=== PATIENT | male | born 1975 | race Native Hawaiian/Other Pacific Islander ===

== ENCOUNTER 2018-10-12 14:24 | Emergency (ER) | payer SELFPAY ==
--- NOTE | 2018-10-12 14:42 | Emergency Department Report ---
Chief Complaint: Hyperglycemia Stated Complaint: HIGH SUGAR Time Seen by Provider: 10/12/18 14:39 - HPI History of Present Illness: went to PCP and blood glucose read TOO HIGH has a hx of DM, hasnt taken medications in 3 months, was on metformin/glimperide feels fatigue, gen weakness, increased urination, feels thirsty no CP or SOB denies any other medical problems non smoker 3-4 beers per week no drug use BG 500 in triage MSE screening note: Focused history and physical exam performed. Due to findings the following was ordered: labs, UA ED Disposition for MSE Condition: Stable
[2018-10-12] MEDS ORDERED: NACL 0.9% 1000 ML 1,000 ML IV ONE (14:50)
[2018-10-12 15:03] LABS: Basophils % (Auto) 0.1 % (0.0-1.8); Eosinophils # (Auto) 0.1 K/mm3 (0.0-0.4); Eosinophils % (Auto) 0.9 % (0.0-4.3); Lymphocytes # (Auto) 2.6 K/mm3 (1.2-5.4); Lymphocytes % (Auto) 29.5 % (13.4-35.0); Mean Corpuscular HGB Conc 36 % (32-34); Mean Corpuscular Volume 90 fl (84-94); Monocytes # (Auto) 0.5 K/mm3 (0.0-0.8); Monocytes % (Auto) 5.6 % (0.0-7.3); Platelet Count 282 K/mm3 (140-440); Red Blood Count 4.99 M/mm3 (3.65-5.03); Red Cell Distribution Width 12.3 % (13.2-15.2)
[2018-10-12 15:15] LABS: Bilirubin,Urine NEG (Negative); Blood,Urine NEG (Negative); Color,Urine Colorless (Yellow); Protein,Urine <15 mg/dL mg/dL (Negative); Urobilinogen,Urine < 2.0 mg/dL (<2.0); WBC,Urine < 1.0 /HPF (0.0-6.0)
[2018-10-12 15:43] LABS: Alanine Aminotransferase 24 units/L (7-56); Albumin 4.2 g/dL (3.9-5); BUN/Creatinine Ratio 18; Blood Urea Nitrogen 11 mg/dL (9-20); Calcium 8.9 mg/dL (8.4-10.2); Hemolysis Index 50
[2018-10-12] MEDS ORDERED: NACL 0.9% 1000 ML 2,000 ML ONE (15:52)
[2018-10-12] MEDS ORDERED: HumuLIN R IV ONE (15:56)
--- NOTE | 2018-10-12 16:00 | Emergency Department Report ---
ED General Adult HPI - General Chief complaint: Hyperglycemia Stated complaint: HIGH SUGAR Time Seen by Provider: 10/12/18 14:39 Source: patient Mode of arrival: Ambulatory Limitations: No Limitations - History of Present Illness Initial comments: The patient presents to the emergency department per request of his primary care physician for elevated glucose levels. The patient complains of having increased thirst and increased urination over the last 2-3 months. Patient has not had his diabetic medications for that timeframe as well. Patient is oral diabetic medications and insulin. At his doctor's appointment today his glucose levels greater than 500. Patient sent to ED for further eval. -: Gradual Severity scale (0 -10): 0 Improves with: none Worsens with: none Associated Symptoms: denies other symptoms Treatments Prior to Arrival: none - Related Data Home Medications Medication Instructions Recorded Confirmed Last Taken Glimepiride [Amaryl] 4 mg PO QDAY 10/12/18 10/12/18 Unknown Lisinopril [Zestril TAB] 5 mg PO QDAY 10/12/18 10/12/18 Unknown Metformin HCl [Glucophage] 1,000 mg PO BID 10/12/18 10/12/18 Unknown Simvastatin [Zocor] 40 mg PO HS 10/12/18 10/12/18 Unknown Previous Rx's Medication Instructions Recorded Last Taken Type Glimepiride [Amaryl] 4 mg PO QAM #30 tablet 10/12/18 Unknown Rx metFORMIN [Glucophage] 500 mg PO BID #120 tablet 10/12/18 Unknown Rx Allergies Allergy/AdvReac Type Severity Reaction Status Date / Time No Known Allergies Allergy Verified 10/12/18 14:26 ED Review of Systems ROS: Stated complaint: HIGH SUGAR Other details as noted in HPI Comment: All other systems reviewed and negative Constitutional: denies: chills, fever Eyes: denies: eye pain, eye discharge, vision change ENT: denies: ear pain, throat pain Respiratory: denies: cough, shortness of breath, wheezing Cardiovascular: denies: chest pain, palpitations Endocrine: no symptoms reported Gastrointestinal: denies: abdominal pain, nausea, diarrhea Genitourinary: denies: urgency, dysuria Musculoskeletal: denies: back pain, joint swelling, arthralgia Skin: denies: rash, lesions Neurological: denies: headache, weakness, paresthesias Psychiatric: denies: anxiety, depression Hematological/Lymphatic: denies: easy bleeding, easy bruising ED Past Medical Hx - Past Medical History Hx Diabetes: Yes - Surgical History Past Surgical History?: No - Social History Smoking Status: Never Smoker Substance Use Type: Alcohol - Medications Home Medications: Home Medications Medication Instructions Recorded Confirmed Last Taken Type Glimepiride [Amaryl] 4 mg PO QAM #30 tablet 10/12/18 Unknown Rx Glimepiride [Amaryl] 4 mg PO QDAY 10/12/18 10/12/18 Unknown History Lisinopril [Zestril TAB] 5 mg PO QDAY 10/12/18 10/12/18 Unknown History Metformin HCl [Glucophage] 1,000 mg PO BID 10/12/18 10/12/18 Unknown History Simvastatin [Zocor] 40 mg PO HS 10/12/18 10/12/18 Unknown History metFORMIN [Glucophage] 500 mg PO BID #120 tablet 10/12/18 Unknown Rx ED Physical Exam - General Limitations: No Limitations General appearance: alert, in no apparent distress - Head Head exam: Present: atraumatic, normocephalic - Eye Eye exam: Present: normal appearance, PERRL - ENT ENT exam: Present: mucous membranes moist - Neck Neck exam: Present: normal inspection - Respiratory Respiratory exam: Present: normal lung sounds bilaterally. Absent: respiratory distress - Cardiovascular Cardiovascular Exam: Present: regular rate, normal rhythm. Absent: systolic murmur, diastolic murmur, rubs, gallop - GI/Abdominal GI/Abdominal exam: Present: soft, normal bowel sounds. Absent: distended, tenderness - Rectal Rectal exam: Present: deferred - Extremities Exam Extremities exam: Present: normal inspection - Back Exam Back exam: Present: normal inspection - Neurological Exam Neurological exam: Present: alert, oriented X3, CN II-XII intact. Absent: motor sensory deficit - Psychiatric Psychiatric exam: Present: normal affect, normal mood - Skin Skin exam: Present: warm, dry, intact, normal color. Absent: rash ED Course Vital Signs 10/12/18 14:39 Temperature 98.0 F Pulse Rate 92 H Respiratory 19 Rate Blood Pressure 121/87 Blood Pressure 121/87 [Left] O2 Sat by Pulse 98 Oximetry ED Medical Decision Making - Lab Data Result diagrams: 10/12/18 14:54 10/12/18 14:54 Lab Results 10/12/18 10/12/18 10/12/18 Range/Units 14:34 14:54 14:54 WBC 8.9 (4.5-11.0) K/mm3 RBC 4.99 (3.65-5.03) M/mm3 Hgb 16.0 H (11.8-15.2) gm/dl Hct 45.0 (35.5-45.6) % MCV 90 (84-94) fl MCH 32 (28-32) pg MCHC 36 H (32-34) % RDW 12.3 L (13.2-15.2) % Plt Count 282 (140-440) K/mm3 Lymph % (Auto) 29.5 (13.4-35.0) % Preston % (Auto) 5.6 (0.0-7.3) % Eos % (Auto) 0.9 (0.0-4.3) % Baso % (Auto) 0.1 (0.0-1.8) % Lymph # 2.6 (1.2-5.4) K/mm3 Preston # 0.5 (0.0-0.8) K/mm3 Eos # 0.1 (0.0-0.4) K/mm3 Baso # 0.0 (0.0-0.1) K/mm3 Seg Neutrophils % 63.9 (40.0-70.0) % Seg Neutrophils # 5.7 (1.8-7.7) K/mm3 Sodium 127 L (137-145) mmol/L Potassium 4.5 (3.6-5.0) mmol/L Chloride 90.7 L (98-107) mmol/L Carbon Dioxide 23 (22-30) mmol/L Anion Gap 18 mmol/L BUN 11 (9-20) mg/dL Creatinine 0.6 L (0.8-1.5) mg/dL Estimated GFR > 60 ml/min BUN/Creatinine Ratio 18 % Glucose 619 H* (75-100) mg/dL POC Glucose 500 H (70-105) Calcium 8.9 (8.4-10.2) mg/dL Total Bilirubin 0.50 (0.1-1.2) mg/dL AST 18 (5-40) units/L ALT 24 (7-56) units/L Alkaline Phosphatase 88 (35-129) units/L Total Protein 7.2 (6.3-8.2) g/dL Albumin 4.2 (3.9-5) g/dL Albumin/Globulin Ratio 1.4 % Urine Color (Yellow) Urine Turbidity (Clear) Urine pH (5.0-7.0) Ur Specific Hitchcock (1.003-1.030) Urine Protein (Negative) mg/dL Urine Glucose (UA) (Negative) mg/dL Urine Ketones (Negative) mg/dL Urine Blood (Negative) Urine Nitrite (Negative) Urine Bilirubin (Negative) Urine Urobilinogen (<2.0) mg/dL Ur Leukocyte Esterase (Negative) Urine WBC (Auto) (0.0-6.0) /HPF Urine RBC (Auto) (0.0-6.0) /HPF 10/12/18 10/12/18 Range/Units 14:55 17:05 WBC (4.5-11.0) K/mm3 RBC (3.65-5.03) M/mm3 Hgb (11.8-15.2) gm/dl Hct (35.5-45.6) % MCV (84-94) fl MCH (28-32) pg MCHC (32-34) % RDW (13.2-15.2) % Plt Count (140-440) K/mm3 Lymph % (Auto) (13.4-35.0) % Preston % (Auto) (0.0-7.3) % Eos % (Auto) (0.0-4.3) % Baso % (Auto) (0.0-1.8) % Lymph # (1.2-5.4) K/mm3 Preston # (0.0-0.8) K/mm3 Eos # (0.0-0.4) K/mm3 Baso # (0.0-0.1) K/mm3 Seg Neutrophils % (40.0-70.0) % Seg Neutrophils # (1.8-7.7) K/mm3 Sodium (137-145) mmol/L Potassium (3.6-5.0) mmol/L Chloride (98-107) mmol/L Carbon Dioxide (22-30) mmol/L Anion Gap mmol/L BUN (9-20) mg/dL Creatinine (0.8-1.5) mg/dL Estimated GFR ml/min BUN/Creatinine Ratio % Glucose (75-100) mg/dL POC Glucose 295 H (70-105) Calcium (8.4-10.2) mg/dL Total Bilirubin (0.1-1.2) mg/dL AST (5-40) units/L ALT (7-56) units/L Alkaline Phosphatase (35-129) units/L Total Protein (6.3-8.2) g/dL Albumin (3.9-5) g/dL Albumin/Globulin Ratio % Urine Color Colorless (Yellow) Urine Turbidity Clear (Clear) Urine pH 6.0 (5.0-7.0) Ur Specific Hitchcock 1.030 (1.003-1.030) Urine Protein <15 mg/dl (Negative) mg/dL Urine Glucose (UA) >=500 (Negative) mg/dL Urine Ketones Neg (Negative) mg/dL Urine Blood Neg (Negative) Urine Nitrite Neg (Negative) Urine Bilirubin Neg (Negative) Urine Urobilinogen < 2.0 (<2.0) mg/dL Ur Leukocyte Esterase Neg (Negative) Urine WBC (Auto) < 1.0 (0.0-6.0) /HPF Urine RBC (Auto) 1.0 (0.0-6.0) /HPF - Medical Decision Making Patient glucose levels improved with IV insulin and IV fluids Critical Care Time: Yes Critical care time in (mins) excluding proc time.: 35 Critical care attestation.: If time is entered above; I have spent that time in minutes in the direct care of this critically ill patient, excluding procedure time. ED Disposition Clinical Impression: Hyperglycemia Disposition: DC-01 TO HOME OR SELFCARE Is pt being admited?: No Does the pt Need Aspirin: No Condition: Stable Instructions: Diabetic Hyperglycemia (ED) Additional Instructions: return if worse Prescriptions: Glimepiride [Amaryl] 4 mg PO QAM #30 tablet metFORMIN [Glucophage] 500 mg PO BID #120 tablet Referrals: LUDWIG ROCK MD [Primary Care Provider] - 3-5 Days [facility] [Provider Group] - 3-5 Days [facility] [Provider Group] - 3-5 Days [facility] [Outside] - 3-5 Days [facility] [Provider Group] - 3-5 Days Time of Disposition: 17:42
[2018-10-12 18:10] VITALS: BP 116/85
== END 2018-10-12 18:11 | disposition home or self-care (01) ==
LOC: ED 14:24
DX: E11.65 Type 2 diabetes mellitus with hyperglycemia (principal)
CPT/HCPCS: 36415; 80053; 81001; 82962; 85025; 96374; 99283; J7030; J1815

== ENCOUNTER 2020-08-31 17:18 | Emergency (ER) | payer SELFPAY ==
--- NOTE | 2020-08-31 17:31 | Event Note ---
ED Screening Note ED Screening Note: Patient was sent by Sangeeta Jones due to hyperglycemia He states that he has had some mild right-sided abdominal pain for a week He denies any fever, nausea, vomiting, diarrhea, recent illness He states he takes Lantus 30 units and Metformin 1000 mg twice daily He states today at [facility], his sugar first was 500 and then they did it again and it read as high accucheck in ED >600 This initial assessment/diagnostic orders/clinical plan/treatment(s) is/are subject to change based on patients health status, clinical progression and re- assessment by fellow clinical providers in the ED. Further treatment and workup at subsequent clinical providers discretion. Patient/guardian urged not to elope from the ED as their condition may be serious if not clinically assessed and managed. Initial orders include: labs, UA
[2020-08-31 17:43] LABS: Basophils % (Auto) 0.3 % (0.0-1.8); Eosinophils # (Auto) 0.1 K/mm3 (0.0-0.4); Eosinophils % (Auto) 1.3 % (0.0-4.3); Hematocrit 44.2 % (35.5-45.6); Hemoglobin 15.7 gm/dl (11.8-15.2); Lymphocytes # (Auto) 2.6 K/mm3 (1.2-5.4); Lymphocytes % (Auto) 28.6 % (13.4-35.0); Mean Corpuscular HGB Conc 36 % (32-34); Mean Corpuscular Volume 90 fl (84-94); Monocytes # (Auto) 0.5 K/mm3 (0.0-0.8); Monocytes % (Auto) 5.2 % (0.0-7.3); Platelet Count 271 K/mm3 (140-440); Red Cell Distribution Width 11.9 % (13.2-15.2)
[2020-08-31 17:44] LABS: Bilirubin,Urine NEG (Negative); Blood,Urine NEG (Negative); Color,Urine Colorless (Yellow); Mucus,Urine FEW /HPF; Protein,Urine <15 mg/dL mg/dL (Negative); Urobilinogen,Urine < 2.0 mg/dL (<2.0); WBC,Urine < 1.0 /HPF (0.0-6.0)
[2020-08-31 17:54] LABS: RBC,Urine < 1.0 /HPF (0.0-6.0)
[2020-08-31] MEDS ORDERED: SODIUM CHLORIDE 0.9% 1000 ML 1,000 ML IV ONE ×2 (17:59→19:03)
[2020-08-31 18:04] LABS: Alanine Aminotransferase 19 units/L (7-56); Albumin 3.9 g/dL (3.9-5); Blood Urea Nitrogen 17 mg/dL (9-20); Calcium 8.7 mg/dL (8.4-10.2); Hemolysis Index 36
[2020-08-31] MEDS ORDERED: INSULIN REGULAR, HUMAN 100 UNITS/1 ML IV ONE ×2 (18:13→20:28)
--- NOTE | 2020-08-31 18:13 | Emergency Department Report ---
ED General Adult HPI - General Chief complaint: Hyperglycemia Stated complaint: HYPERGLYCEMIA PUI?: No Time Seen by Provider: 08/31/20 17:29 Source: patient Mode of arrival: Ambulatory Limitations: No Limitations - History of Present Illness Initial comments: Patient is a 45-year-old male that presents emergency room with complaints of hyperglycemia and abdominal pain. Patient states his blood glucose has been high for a few weeks secondary to stopping his Lantus, Metformin and glimepiride. Patient states he stopped his medications 4 weeks ago due to running out. Patient states he has not seen . Patient states he went to see a primary care and they sent him here because his blood glucose was so high. Patient states that approximately 4 days ago he also developed bilateral lower quadrant abdominal pain. Patient states the pain is a 8 out of 10 and is intermittent. Patient denies nausea vomiting. Patient denies fever and chills. Patient denies chest pain or shortness of breath. Patient complains of increa sed urination and thirst. Patient states the abdominal pain is better with rest and worse with movement. Patient denies recent travel. Patient denies recent international travel. Patient denies exposure to the novel coronavirus. Patient denies sick contacts. Patient denies fever and chills. Patient denies cough. Patient denies diarrhea. Patient denies coming in contact with anybody with symptoms of the novel coronavirus. -: Sudden Location: abdomen Severity scale (0 -10): 8 Quality: stabbing Consistency: intermittent Worsens with: movement, rest Associated Symptoms: other. denies: confusion, chest pain, cough, diaphoresis, fever/chills, headaches, loss of appetite, malaise, nausea/vomiting, rash, seizure, shortness of breath, syncope, weakness Treatments Prior to Arrival: none - Related Data Home Medications Medication Instructions Recorded Confirmed Last Taken Glimepiride [Amaryl] 4 mg PO QDAY 10/12/18 10/12/18 Unknown Lisinopril [Zestril TAB] 5 mg PO QDAY 10/12/18 10/12/18 Unknown Simvastatin [Zocor] 40 mg PO HS 10/12/18 10/12/18 Unknown Previous Rx's Medication Instructions Recorded Last Taken Type Glimepiride [Amaryl] 4 mg PO QAM #30 tablet 10/12/18 Unknown Rx metFORMIN [Glucophage] 500 mg PO BID #120 tablet 10/12/18 Unknown Rx Insulin Glargine [Lantus VIAL] 30 unit SUB-Q QHS #1 vial 08/31/20 Unknown Rx Metformin HCl [Glucophage] 1,000 mg PO BID #30 tab 08/31/20 Unknown Rx Allergies Allergy/AdvReac Type Severity Reaction Status Date / Time No Known Allergies Allergy Verified 10/12/18 14:26 ED Review of Systems ROS: Stated complaint: HYPERGLYCEMIA Other details as noted in HPI Constitutional: denies: chills, fever Eyes: denies: eye pain, eye discharge, vision change ENT: denies: ear pain, throat pain Respiratory: denies: cough, shortness of breath, wheezing Cardiovascular: denies: chest pain, palpitations Endocrine: no symptoms reported, see HPI, increased thirst, increased urine Gastrointestinal: as per HPI, abdominal pain. denies: nausea, vomiting, diarrhea Genitourinary: denies: urgency, dysuria Musculoskeletal: denies: back pain, joint swelling, arthralgia Skin: denies: rash, lesions Neurological: denies: headache, weakness, paresthesias Psychiatric: denies: anxiety, depression Hematological/Lymphatic: denies: easy bleeding, easy bruising ED Past Medical Hx - Past Medical History Previous Medical History?: Yes Hx Diabetes: Yes - Surgical History Past Surgical History?: No - Family History Family history: no significant - Social History Smoking Status: Never Smoker Substance Use Type: Alcohol - Medications Home Medications: Home Medications Medication Instructions Recorded Confirmed Last Taken Type Glimepiride [Amaryl] 4 mg PO QAM #30 tablet 10/12/18 Unknown Rx Glimepiride [Amaryl] 4 mg PO QDAY 10/12/18 10/12/18 Unknown History Lisinopril [Zestril TAB] 5 mg PO QDAY 10/12/18 10/12/18 Unknown History Simvastatin [Zocor] 40 mg PO HS 10/12/18 10/12/18 Unknown History metFORMIN [Glucophage] 500 mg PO BID #120 tablet 10/12/18 Unknown Rx Insulin Glargine [Lantus VIAL] 30 unit SUB-Q QHS #1 vial 08/31/20 Unknown Rx Metformin HCl [Glucophage] 1,000 mg PO BID #30 tab 08/31/20 Unknown Rx ED Physical Exam - General Limitations: No Limitations General appearance: alert, in no apparent distress - Head Head exam: Present: atraumatic, normocephalic - Eye Eye exam: Present: normal appearance - ENT ENT exam: Present: mucous membranes moist - Neck Neck exam: Present: normal inspection - Respiratory Respiratory exam: Present: normal lung sounds bilaterally. Absent: respiratory distress - Cardiovascular Cardiovascular Exam: Present: regular rate, normal rhythm. Absent: systolic murmur, diastolic murmur, rubs, gallop - GI/Abdominal GI/Abdominal exam: Present: soft, tenderness (Right lower quadrant tenderness to palpation.), normal bowel sounds - Rectal Rectal exam: Present: deferred - Extremities Exam Extremities exam: Present: normal inspection - Back Exam Back exam: Present: normal inspection - Neurological Exam Neurological exam: Present: alert, oriented X3 - Psychiatric Psychiatric exam: Present: normal affect, normal mood - Skin Skin exam: Present: warm, dry, intact, normal color. Absent: rash ED Course Vital Signs 08/31/20 08/31/20 08/31/20 17:25 18:42 18:45 Pulse Rate 105 H Respiratory 16 Rate Blood Pressure Blood Pressure 148/93 [Right] O2 Sat by Pulse 98 98 98 Oximetry 08/31/20 08/31/20 08/31/20 19:01 19:15 19:31 Pulse Rate 97 H 95 H 87 Respiratory 17 18 17 Rate Blood Pressure 122/89 122/89 122/89 Blood Pressure [Right] O2 Sat by Pulse 98 98 98 Oximetry 08/31/20 08/31/20 08/31/20 19:45 20:26 20:30 Pulse Rate 91 H 87 86 Respiratory 17 19 12 Rate Blood Pressure 117/83 117/83 117/83 Blood Pressure [Right] O2 Sat by Pulse 97 99 99 Oximetry 08/31/20 08/31/20 08/31/20 20:45 21:01 21:15 Pulse Rate 85 85 89 Respiratory 20 19 20 Rate Blood Pressure 117/83 135/75 133/80 Blood Pressure [Right] O2 Sat by Pulse 98 100 98 Oximetry - Reevaluation(s) Reevaluation #1: Patient found to have elevated blood sugar. Patient will be given insulin and fluids. 08/31/20 18:15 Reevaluation #2: Patient's blood sugar remains high. Patient will be given more fluids and more insulin. Patient states he is feeling better. 08/31/20 20:57 Reevaluation #3: Patient's blood sugar has improved and is now 278. Patient states he is feeling much better. I discussed all results and clinical findings with patient. I discussed plan of care with patient. Patient agrees with plan of care. Patient is stable for discharge. Patient will be discharged home. Patient given discharge instructions. Patient voiced understanding of discharge instructions. 08/31/20 21:15 ED Medical Decision Making - Lab Data Result diagrams: 08/31/20 17:30 08/31/20 17:30 - Medical Decision Making Patient is a 45-year-old male who presents emergency room with complaints of hyperglycemia and abdominal pain. Patient's blood sugar is high because he stopped taking his meds 4 months ago. Patient had labs done which were essentially unremarkable except for elevated blood sugar. Patient was given 2 doses of insulin to equal 22 units and fluids and his blood sugar improved dram atically. Patient states he is feeling much better after fluids and insulin. Patient complained of bilateral lower quadrant abdominal pain patient had a CT scan of the abdomen. Patient CT scan of the abdomen was negative for acute findings. Patient found to have constipation on CT scan. Patient medications include 1000 mg of Metformin twice daily, glimepiride and Lantus 30 units nightly. Patient will be given a refill of his Metformin and Lantus. Patient instructed to hold Metformin for 2 days since he had a CAT scan with IV contrast. Patient to increase water. Patient to eat a diabetic diet. I confirmed the patient's previous medicines and doses with patient. Patient given discharge instructions. Patient to eat a high-fiber diet and patient given prescription for Colace for his constipation. Patient stable for discharge. Patient discharged home. Critical care time documented due to the multiple reassessments, prolonged time at the bedside, interpretation of diagnostics and labs. - Differential Diagnosis Hyperglycemia, noncompliance, DKA, HHS, abdominal pain, constipation. Critical Care Time: Yes Critical care time in (mins) excluding proc time.: 35 Critical care attestation.: If time is entered above; I have spent that time in minutes in the direct care of this critically ill patient, excluding procedure time. Critical Care Time: 35 minutes ED Disposition Clinical Impression: Hyperglycemia, Noncompliance Uncontrolled diabetes mellitus Qualifiers: Diabetes mellitus type: type 2 Glycemic state: with hyperglycemia Qualified Code(s): E11.65 - Type 2 diabetes mellitus with hyperglycemia Abdominal pain Qualifiers: Abdominal location: lower abdomen, unspecified Qualified Code(s): R10.30 - Lower abdominal pain, unspecified Constipation Qualifiers: Constipation type: unspecified constipation type Qualified Code(s): K59.00 - Constipation, unspecified Disposition: TO HOME OR SELFCARE Is pt being admited?: No Does the pt Need Aspirin: No Condition: Stable Instructions: Diabetes Mellitus Type 2 in Adults (ED), Preventing Type 2 Diabetes Mellitus, Type 2 Diabetes Mellitus, Self Care, Adult, [id number], Constipation, Adult, [id number], Diabetes Mellitus and Exercise, Hyperglycemia, [id number] Additional Instructions: Patient to hold Metformin for 2 days. Patient to follow-up with primary care in 2 to 3 days. Patient to follow-up with gastroenterology and endocrinology in 2 to 3 days. Patient to rest. Patient to increase water. Patient to eat a diabetic, low-salt diet. Patient to monitor his blood pressure and blood sugars at home. Patient to keep a blood pressure and blood sugar log and taken to all of his follow-up appointments. Patient to eat a high-fiber diet. Patient to take Tylenol or ibuprofen as needed for pain. Patient to take meds as directed. Patient to return to the ER if condition worsens, changes or new symptoms arise. Prescriptions: Insulin Glargine [Lantus VIAL] 30 unit SUB-Q QHS #1 vial Metformin HCl [Glucophage] 1,000 mg PO BID #30 tab Referrals: IRENA FRANCISCO MD [Other] - 2-3 Days Time of Disposition: 22:07 Print Language: OCCITAN
[2020-08-31 18:14] LABS: BUN/Creatinine Ratio 28
--- NOTE | 2020-08-31 20:39 | Cat Scan Report ---
CT abdomen pelvis w con INDICATION / CLINICAL INFORMATION: abd pain.. TECHNIQUE: Axial CT imaging of abdomen and pelvis was obtained with IV contrast. Coronal and sagittal reformatte d imaging obtained and reviewed. All CT scans at this location are performed using CT dose reduction for ALARA by means of automated exposure control. COMPARISON: None available. FINDINGS: CT abdomen with contrast demonstrates grossly normal appearance of the liver, spleen, pancreas, kidne ys, and adrenal glands. Gallbladder is unremarkable. No biliary dilatation. No intrarenal calculi or hydronephrosis identified. Abdominal aorta is normal in appearance. CT pelvis with contrast does not demonstrate any mass, free fluid, or focal inflammatory change. A no rmal appendix is present in the right lower quadrant. Large amount of stool seen throughout the colon and rectum suggesting constipation. The remainder of the GI tract is unremarkable. Prostate gland is normal in size. Visualized lung bases are clear. Review of osseous structures does not demonstrate any acute osseous abnormality. IMPRESSION: 1. Moderate amount of stool noted throughout the colon and rectum suggesting constipation. 2. No other significant finding identified within the abdomen or pelvis. Signer Name: Janey Bonilla MD Signed: 08/31/2020 8:35 PM Workstation Name: [id number]
[2020-08-31 22:24] VITALS: BP 119/91
== END 2020-08-31 22:25 | disposition home or self-care (01) ==
LOC: ED 17:18
DX: E11.65 Type 2 diabetes mellitus with hyperglycemia (principal); K59.00 Constipation, unspecified; Z79.899 Other long term (current) drug therapy
CPT/HCPCS: 36415; 74177; 80053; 81001; 82805; 82962; 83690; 85025; 96361; 96374; 96376; 99284; J7030; Q9967; J1815

== ENCOUNTER 2021-05-24 18:56 | Emergency (ER) | payer SELFPAY ==
[2021-05-24] MEDS ORDERED: SODIUM CHLORIDE 0.9% 1000 ML 1,000 ML IV ONE ×2 (19:31→20:14)
[2021-05-24 19:51] LABS: Basophils % (Auto) 0.4 % (0.0-1.8); Eosinophils # (Auto) 0.1 K/mm3 (0.0-0.4); Eosinophils % (Auto) 1.3 % (0.0-4.3); Hematocrit 47.4 % (35.5-45.6); Hemoglobin 16.1 gm/dl (11.8-15.2); Lymphocytes # (Auto) 3.9 K/mm3 (1.2-5.4); Lymphocytes % (Auto) 43.6 % (13.4-35.0); Mean Corpuscular HGB Conc 34 % (32-34); Mean Corpuscular Volume 86 fl (84-94); Monocytes # (Auto) 0.6 K/mm3 (0.0-0.8); Monocytes % (Auto) 6.2 % (0.0-7.3); Platelet Count 328 K/mm3 (140-440); Red Blood Count 5.49 M/mm3 (3.65-5.03); Red Cell Distribution Width 12.5 % (13.2-15.2)
[2021-05-24 20:12] LABS: Alanine Aminotransferase 21 units/L (7-56); Albumin 4.5 g/dL (3.9-5); Blood Urea Nitrogen 12 mg/dL (9-20); Calcium 9.3 mg/dL (8.4-10.2); Hemolysis Index 12
--- NOTE | 2021-05-24 20:16 | Emergency Department Report ---
ED General Adult HPI - General Chief complaint: Hyperglycemia Stated complaint: HYPERGLYCEMIA Time Seen by Provider: 05/24/21 20:14 Source: patient Mode of arrival: Ambulatory Limitations: No Limitations - History of Present Illness Initial comments: 45-year-old male with a history of diabetes presents to the hospital planing of hyperglycemia. Patient has been taking his Metformin twice a day but noncompliant with his insulin for the last 2 weeks. His sugar has ranged from 230s to 500s at home. He is having increased thirst, urination, and feeling tired with intermittent cramping to hands. He was seen by his PMD today and his sugar was "high" and therefore he was sent to the ER for evaluation. He currently denies pain, nausea, or vomiting - Related Data Home Medications Medication Instructions Recorded Confirmed Last Taken Glimepiride [Amaryl] 4 mg PO QDAY 10/12/18 05/24/21 Unknown Lisinopril [Zestril TAB] 5 mg PO QDAY 10/12/18 05/24/21 Unknown Simvastatin [Zocor] 40 mg PO HS 10/12/18 05/24/21 Unknown Previous Rx's Medication Instructions Recorded Last Taken Type Glimepiride [Amaryl] 4 mg PO QAM #30 tablet 10/12/18 Unknown Rx metFORMIN [Glucophage] 500 mg PO BID #120 tablet 10/12/18 Unknown Rx Metformin HCl [Glucophage] 1,000 mg PO BID #30 tab 08/31/20 Unknown Rx Insulin Glargine [Lantus VIAL] 30 unit SUB-Q QHS #1 vial 05/25/21 Unknown Rx Metformin HCl [metFORMIN] 1,000 mg PO BID #60 tablet 05/25/21 Unknown Rx Allergies Allergy/AdvReac Type Severity Reaction Status Date / Time No Known Allergies Allergy Verified 05/24/21 19:33 ED Review of Systems ROS: Stated complaint: HYPERGLYCEMIA Other details as noted in HPI Comment: All other systems reviewed and negative ED Past Medical Hx - Past Medical History Previous Medical History?: Yes Hx Diabetes: Yes - Surgical History Past Surgical History?: No - Social History Smoking Status: Never Smoker Substance Use Type: Alcohol - Medications Home Medications: Home Medications Medication Instructions Recorded Confirmed Last Taken Type Glimepiride [Amaryl] 4 mg PO QAM #30 tablet 10/12/18 05/24/21 Unknown Rx Glimepiride [Amaryl] 4 mg PO QDAY 10/12/18 05/24/21 Unknown History Lisinopril [Zestril TAB] 5 mg PO QDAY 10/12/18 05/24/21 Unknown History Simvastatin [Zocor] 40 mg PO HS 10/12/18 05/24/21 Unknown History metFORMIN [Glucophage] 500 mg PO BID #120 tablet 10/12/18 05/24/21 Unknown Rx Metformin HCl [Glucophage] 1,000 mg PO BID #30 tab 08/31/20 05/24/21 Unknown Rx Insulin Glargine [Lantus VIAL] 30 unit SUB-Q QHS #1 vial 05/25/21 Unknown Rx Metformin HCl [metFORMIN] 1,000 mg PO BID #60 tablet 05/25/21 Unknown Rx ED Physical Exam - General Limitations: No Limitations - Other Other exam information: General: No acute distress Head: Atraumatic Eyes: normal appearance ENT: Moist mucous membranes Neck: Normal appearance, no midline tenderness Chest: Clear to auscultation bilaterally CV: Tachycardic regular rhythm Abdomen: Soft, normal bowel sounds, nontender, nondistended, no rebound or guarding Back: Normal inspection Extremity: Normal inspection, full range of motion Neuro: Alert O x 3, no facial asymmetry, speech clear, no gross motor sensory deficit Psych: Appropriate behavior Skin: No rash ED Course Vital Signs 05/24/21 05/24/21 05/24/21 19:09 20:28 20:36 Temperature 98.2 F 98.6 F Pulse Rate 112 H 79 Respiratory 18 18 Rate Blood Pressure 119/86 Blood Pressure 129/75 [Left] O2 Sat by Pulse 96 99 99 Oximetry ED Medical Decision Making - Lab Data Result diagrams: 05/24/21 19:39 05/24/21 19:39 Lab Results 05/24/21 05/24/21 05/24/21 Range/Units 19:07 19:32 19:39 WBC 9.0 (4.5-11.0) K/mm3 RBC 5.49 H (3.65-5.03) M/mm3 Hgb 16.1 H (11.8-15.2) gm/dl Hct 47.4 H (35.5-45.6) % MCV 86 (84-94) fl MCH 29 (28-32) pg MCHC 34 (32-34) % RDW 12.5 L (13.2-15.2) % Plt Count 328 (140-440) K/mm3 Lymph % (Auto) 43.6 H (13.4-35.0) % [place] % (Auto) 6.2 (0.0-7.3) % Eos % (Auto) 1.3 (0.0-4.3) % Baso % (Auto) 0.4 (0.0-1.8) % Lymph # (Auto) 3.9 (1.2-5.4) K/mm3 [place] # (Auto) 0.6 (0.0-0.8) K/mm3 Eos # (Auto) 0.1 (0.0-0.4) K/mm3 Baso # (Auto) 0.0 (0.0-0.1) K/mm3 Seg Neutrophils % 48.5 (40.0-70.0) % Seg Neutrophils # 4.4 (1.8-7.7) K/mm3 VBG pH (7.320-7.420) Sodium (137-145) mmol/L Potassium (3.6-5.0) mmol/L Chloride (98-107) mmol/L Carbon Dioxide (22-30) mmol/L Anion Gap mmol/L BUN (9-20) mg/dL Creatinine (0.8-1.3) mg/dL Estimated GFR ml/min BUN/Creatinine Ratio % Glucose (75-100) mg/dL POC Glucose 437 H 388 H (70-105) mg/dL Calcium (8.4-10.2) mg/dL Phosphorus (2.5-4.5) mg/dL Magnesium (1.7-2.3) mg/dL Total Bilirubin (0.1-1.2) mg/dL AST (5-40) units/L ALT (7-56) units/L Alkaline Phosphatase (35-129) units/L Total Protein (6.3-8.2) g/dL Albumin (3.9-5) g/dL Albumin/Globulin Ratio % Urine Color (Yellow) Urine Turbidity (Clear) Urine pH (5.0-7.0) Ur Specific [place] (1.003-1.030) Urine Protein (Negative) mg/dL Urine Glucose (UA) (Negative) mg/dL Urine Ketones (Negative) mg/dL Urine Blood (Negative) Urine Nitrite (Negative) Urine Bilirubin (Negative) Urine Urobilinogen (<2.0) mg/dL Ur Leukocyte Esterase (Negative) Urine WBC (Auto) (0.0-6.0) /HPF Urine RBC (Auto) (0.0-6.0) /HPF U Epithel Cells (Auto) (0-13.0) /HPF 05/24/21 05/24/21 05/24/21 Range/Units 19:39 19:39 20:18 WBC (4.5-11.0) K/mm3 RBC (3.65-5.03) M/mm3 Hgb (11.8-15.2) gm/dl Hct (35.5-45.6) % MCV (84-94) fl MCH (28-32) pg MCHC (32-34) % RDW (13.2-15.2) % Plt Count (140-440) K/mm3 Lymph % (Auto) (13.4-35.0) % [place] % (Auto) (0.0-7.3) % Eos % (Auto) (0.0-4.3) % Baso % (Auto) (0.0-1.8) % Lymph # (Auto) (1.2-5.4) K/mm3 [place] # (Auto) (0.0-0.8) K/mm3 Eos # (Auto) (0.0-0.4) K/mm3 Baso # (Auto) (0.0-0.1) K/mm3 Seg Neutrophils % (40.0-70.0) % Seg Neutrophils # (1.8-7.7) K/mm3 VBG pH 7.402 (7.320-7.420) Sodium 132 L (137-145) mmol/L Potassium 4.3 (3.6-5.0) mmol/L Chloride 94.7 L (98-107) mmol/L Carbon Dioxide 25 (22-30) mmol/L Anion Gap 17 mmol/L BUN 12 (9-20) mg/dL Creatinine 0.5 L (0.8-1.3) mg/dL Estimated GFR > 60 ml/min BUN/Creatinine Ratio 24 % Glucose 411 H (75-100) mg/dL POC Glucose 347 H (70-105) mg/dL Calcium 9.3 (8.4-10.2) mg/dL Phosphorus 3.70 (2.5-4.5) mg/dL Magnesium 2.00 (1.7-2.3) mg/dL Total Bilirubin 0.40 (0.1-1.2) mg/dL AST 13 (5-40) units/L ALT 21 (7-56) units/L Alkaline Phosphatase 88 (35-129) units/L Total Protein 7.9 (6.3-8.2) g/dL Albumin 4.5 (3.9-5) g/dL Albumin/Globulin Ratio 1.3 % Urine Color (Yellow) Urine Turbidity (Clear) Urine pH (5.0-7.0) Ur Specific [place] (1.003-1.030) Urine Protein (Negative) mg/dL Urine Glucose (UA) (Negative) mg/dL Urine Ketones (Negative) mg/dL Urine Blood (Negative) Urine Nitrite (Negative) Urine Bilirubin (Negative) Urine Urobilinogen (<2.0) mg/dL Ur Leukocyte Esterase (Negative) Urine WBC (Auto) (0.0-6.0) /HPF Urine RBC (Auto) (0.0-6.0) /HPF U Epithel Cells (Auto) (0-13.0) /HPF 05/24/21 05/24/21 05/24/21 Range/Units 21:24 22:33 23:54 WBC (4.5-11.0) K/mm3 RBC (3.65-5.03) M/mm3 Hgb (11.8-15.2) gm/dl Hct (35.5-45.6) % MCV (84-94) fl MCH (28-32) pg MCHC (32-34) % RDW (13.2-15.2) % Plt Count (140-440) K/mm3 Lymph % (Auto) (13.4-35.0) % [place] % (Auto) (0.0-7.3) % Eos % (Auto) (0.0-4.3) % Baso % (Auto) (0.0-1.8) % Lymph # (Auto) (1.2-5.4) K/mm3 [place] # (Auto) (0.0-0.8) K/mm3 Eos # (Auto) (0.0-0.4) K/mm3 Baso # (Auto) (0.0-0.1) K/mm3 Seg Neutrophils % (40.0-70.0) % Seg Neutrophils # (1.8-7.7) K/mm3 VBG pH (7.320-7.420) Sodium (137-145) mmol/L Potassium (3.6-5.0) mmol/L Chloride (98-107) mmol/L Carbon Dioxide (22-30) mmol/L Anion Gap mmol/L BUN (9-20) mg/dL Creatinine (0.8-1.3) mg/dL Estimated GFR ml/min BUN/Creatinine Ratio % Glucose (75-100) mg/dL POC Glucose 287 H 173 H (70-105) mg/dL Calcium (8.4-10.2) mg/dL Phosphorus (2.5-4.5) mg/dL Magnesium (1.7-2.3) mg/dL Total Bilirubin (0.1-1.2) mg/dL AST (5-40) units/L ALT (7-56) units/L Alkaline Phosphatase (35-129) units/L Total Protein (6.3-8.2) g/dL Albumin (3.9-5) g/dL Albumin/Globulin Ratio % Urine Color Straw (Yellow) Urine Turbidity Clear (Clear) Urine pH 7.0 (5.0-7.0) Ur Specific [place] 1.039 H (1.003-1.030) Urine Protein <15 mg/dl (Negative) mg/dL Urine Glucose (UA) >=500 (Negative) mg/dL Urine Ketones 20 (Negative) mg/dL Urine Blood Neg (Negative) Urine Nitrite Neg (Negative) Urine Bilirubin Neg (Negative) Urine Urobilinogen < 2.0 (<2.0) mg/dL Ur Leukocyte Esterase Neg (Negative) Urine WBC (Auto) < 1.0 (0.0-6.0) /HPF Urine RBC (Auto) 1.0 (0.0-6.0) /HPF U Epithel Cells (Auto) < 1.0 (0-13.0) /HPF - Medical Decision Making Patient has hyperglycemia without DKA secondary to medication noncompliance. Patient received IV fluids and insulin in ED with improvement in glucose in symptoms. Patient will be discharged home with a refill his medications and PMD follow up - Differential Diagnosis Hyperglycemia, DKA Critical Care Time: No Critical care attestation.: If time is entered above; I have spent that time in minutes in the direct care of this critically ill patient, excluding procedure time. ED Disposition Clinical Impression: Hyperglycemia due to diabetes mellitus, Noncompliance with medication regimen Disposition: HOME / SELF CARE / HOMELESS Is pt being admited?: No Does the pt Need Aspirin: No Condition: Stable Instructions: Diabetes Mellitus Type 2 in Adults (ED), Insulin Treatment for Di abetes Mellitus, Hyperglycemia, [id number] Additional Instructions: Take the medication as prescribed. Follow-up with your doctor or doctor/clinic provided. Return if symptoms worsen as indicated by your discharge instructions. Prescriptions: Insulin Glargine [Lantus VIAL] 30 unit SUB-Q QHS #1 vial Metformin HCl [metFORMIN] 1,000 mg PO BID #60 tablet Referrals: PRIMARY CARE, [Primary Care Provider] - 3-5 Days Time of Disposition: 00:09
[2021-05-24 20:28] LABS: BUN/Creatinine Ratio 24
[2021-05-24 20:37] VITALS: BP 129/75
[2021-05-24] MEDS ORDERED: INSULIN REGULAR, HUMAN 100 UNITS/1 ML IV ONE ×2 (21:02→22:48)
[2021-05-24 21:40] LABS: Bilirubin,Urine NEG (Negative); Blood,Urine NEG (Negative); Color,Urine Straw (Yellow); Protein,Urine <15 mg/dL mg/dL (Negative); Urobilinogen,Urine < 2.0 mg/dL (<2.0)
[2021-05-24 21:43] LABS: WBC,Urine < 1.0 /HPF (0.0-6.0)
== END 2021-05-25 00:59 | disposition home or self-care (01) ==
LOC: ED 18:56
DX: E11.65 Type 2 diabetes mellitus with hyperglycemia (principal); Z72.89 Other problems related to lifestyle; Z79.4 Long term (current) use of insulin; Z79.899 Other long term (current) drug therapy
CPT/HCPCS: 36415; 80053; 81001; 82805; 82962; 83735; 84100; 85025; 96361; 96374; 96376; 99283; J7030; Q0162; Q9967; J1815